=== PATIENT | female | born 1995 | race African-American/Black ===

== ENCOUNTER 2022-04-12 18:09 | Inpatient (IN) | payer MEDICAID ==
[~2022-04-12] VITALS: Ht 175.3 cm; Wt 104.6 kg
[2022-04-13] MEDS ORDERED: mag hydrox/Alum hydrox/simeth 30ml oral suspension PO PRN (15:20)
[2022-04-13] MEDS ORDERED: loperamide 2mg capsule PO PRN (15:20)
[2022-04-13] MEDS ORDERED: magnesium hydroxide 30ml (MOM) UD suspension PO PRN (15:20)
[2022-04-13] MEDS ORDERED: acetaminophen 325mg tablet PO PRN ×2 (15:20)
--- NOTE | 2022-04-13 16:51 | NUR ---
Admit note: [facility] for DTS from [facility] at 1615. Pt stated she has been experiencing SI with a plan to slit her wrists. Pt reported of four attempts to overdose in the last month. Pt has a history of depression. Pt states having her children removed by CPS was the trigger.
[2022-04-13 17:02] VITALS: BP 120/72
[2022-04-13 19:57] VITALS: BP 113/74
--- NOTE | 2022-04-13 23:40 | NUR ---
Nursing Progress Note Problem : [facility] on 5150 for DTS from [facility] at 1615. Pt stated she has been experiencing SI with a plan to slit her wrists. Pt reported of four attempts to overdose in the last month. Pt has a history of depression. Pt states having her children removed by CPS was the trigger. Interventions : Maintained a safe and supportive environment, ensured contract for safety, and maintained Q 15min safety checks. Response : Pt was in her room resting at change of shift. She states she is feeling better and hopeful to be out here by Thursday04/16/22 because she is hopeful she will get her children back. Pt currently denies s/i and states she hasnt taken medication in months and is hoping to get stable on her medication and do what she needs to do to get her children returned. Pt is calm and cooperative. Isolates to herself. Had evening snack and spent time reading before bed. Pt declines nicotine patch or lozenges although she reports smoking 1/2 ppd. Plan : Pt. continues to require medication adjustments and a safe and supportive environment. Q 15 minute checks for safety.
[2022-04-14 07:50] LABS: CHOL/HDL RATIO 6.4 (0.00-4.99); CHOLESTEROL 199 MG/DL (0-200); HDL CHOLESTEROL 31 MG/DL (35-60); LDL CHOLESTEROL 132 MG/DL (50-100); TRIGLYCERIDES 167 MG/DL (20-135)
[2022-04-14 08:00] VITALS: BP 113/74
[2022-04-14 10:59] LABS: HEMOGLOBIN A1C 5.7 % (4.5-6.2)
[2022-04-14] MEDS ORDERED: SERT200C PO (11:01)
[2022-04-14] MEDS ORDERED: hydrOXYzine 25 MG tablet PO PRN (15:10)
[2022-04-14] MEDS ORDERED: traZODone 150mg tablet PO PRN (16:10)
--- NOTE | 2022-04-14 18:22 | NUR ---
Nursing Progress Note: Maribel Problem: Pt admitted to [facility] on 5150 for DTS from [facility]. Pt stated she has been experiencing SI with a plan to slit her wrists. Pt reported of four attempts to overdose in the last month. Pt has a history of depression. Pt states having her children removed by CPS was the trigger. Intervention: Provided with a safe and therapeutic environment, clear communication, active listening and positive encouragement. Response: Patient is cooperative with 1:1 assessment. She is tearful when talking about her current situation. She states that her children were taken from her and there are now ongoing custody issues that she is concerned about. She verbalizes that she is feeling depressed and scared about what will happen with her children in court on Thursday. Appears depressed and isolates to her room. Plan: Patient continues to require crisis interruption and stabilization with medication management and monitoring in a safe and therapeutic environment.
[2022-04-14] MEDS ORDERED: traZODone 50mg tablet PO PRN (19:15)
[2022-04-14 19:25] VITALS: BP 133/85
--- NOTE | 2022-04-14 22:13 | NUR ---
Nursing Progress Note: Maribel Problem: Pt admitted to [facility] on 5150 for DTS from [facility]. Pt stated she has been experiencing SI with a plan to slit her wrists. Pt reported of four attempts to overdose in the last month. Pt has a history of depression. Pt states having her children removed by CPS was the trigger. Intervention: Provided with a safe and therapeutic environment, clear communication, active listening and positive encouragement. Response: Pt was in her room at change of shift reading. Patient is cooperative with 1:1 assessment. She is tearful, stating she hopes she will be able to be released to go to court Thursday for court for her children. She states that her children were taken from her and there are now ongoing custody issues that she is concerned about. Pt denies s/i, denies anxiety, states she slept well last night, then later asks for meds for anxiety and sleep, stating she is worried about court and thinks if she sleeps well she will be feeling better tomorrow. Pt is quiet, guarded, appears depressed and isolates to her room. Plan: Patient continues to require crisis interruption and stabilization with medication management and monitoring in a safe and therapeutic environment.
[2022-04-15] MEDS: sertraline 50mg tablet PO SCH (07:59)
[2022-04-15 08:00] VITALS: BP 109/55
--- NOTE | 2022-04-15 15:12 | NUR ---
Met with Maribel with [facility] to discuss discharge plan and court. She requested she get discharged today so she can attend court tomorrow. Top Steep Tender could not find information on line that she has court tomorrow. Maribel reported it is confidential because it is a juvenile case. Maribel attempted to reach her CPS director social service, Petros Chen (ph# [phone]) to confirm court. Maribel left him a message requesting a call back. Top Steep Tender also left him a message requesting a call back. Petros returned repairer typewriter's call and confirmed that Maribel does have court tomorrow. Informed him that she is in the hospital currently and may not be able to attend. He reported she can attend via phone and they will call her at 8:30 tomorrow. Gave him the nurses station # to call for court. He reported he will give Maribel a call today as well to discuss attending via phone. EVERARDO Galvan
--- NOTE | 2022-04-15 16:09 | NUR ---
Nursing Progress Note: Maribel Problem: Pt admitted to [facility] on 5150 for DTS from [facility]. Pt stated she has been experiencing SI with a plan to slit her wrists. Pt reported of four attempts to overdose in the last month. Pt has a history of depression. Pt states having her children removed by CPS was the trigger. Intervention: Provided with a safe and therapeutic environment, clear communication, active listening and positive encouragement. Response: Cooperative with 1:1 assessment and medications. Verbalizes concern over getting to her court date tomorrow morning for custody of her 6 children. information services consultant states that her hearing will be over the phone. Isolates to her room and only comes out for meals or to meet her needs. Denies any SI at this time but continues to appear depressed. Plan: Patient continues to require crisis interruption and stabilization with medication management and monitoring in a safe and therapeutic environment.
[2022-04-15 19:26] VITALS: BP 99/54
[2022-04-15] MEDS ORDERED: traZODone 50mg tablet PO PRN (20:00)
--- NOTE | 2022-04-15 20:44 | NUR ---
Nursing Progress Note: Maribel Problem: Pt admitted to [facility] on 5150 for DTS from [facility]. Pt stated she has been experiencing SI with a plan to slit her wrists. Pt reported of four attempts to overdose in the last month. Pt has a history of depression. Pt states having her children removed by CPS was the trigger. Intervention: Provided with a safe and therapeutic environment, clear communication, active listening and positive encouragement. Response: Pt was resting in bed a change of shift, then fell asleep shortly after having vitals done. Pt was asleep and snoring softly rr 16 at HS med pass. Pt did not receive any medications this evening as she is asleep. Plan: Patient continues to require crisis interruption and stabilization with medication management and monitoring in a safe and therapeutic environment.
[2022-04-16 08:00] VITALS: BP 107/66
[2022-04-16] MEDS: sertraline 50mg tablet PO SCH (08:06)
--- NOTE | 2022-04-16 17:08 | NUR ---
Nursing Progress Note: Maribel Problem: Pt admitted to [facility] on 5150 for DTS from [facility]. Pt stated she has been experiencing SI with a plan to slit her wrists. Pt reported of four attempts to overdose in the last month. Pt has a history of depression. Pt states having her children removed by CPS was the trigger. Intervention: Provided with a safe and therapeutic environment, clear communication, active listening and positive encouragement. Response: Patient continues to endorse feelings of depression due to her children being taken from her. She verbalizes concern over her hearing today for custody of her kids. cargo and ramp services manager is aware and has been in communication with the CPS worker. Patient is now waiting on a call from her transportation department supervisor to discuss what happened at her hearing. Patient continues to isolate herself in her room. She comes out for meals and to meet her needs. Denies having any SI. States, I havent since Rebecca been here. Patient appears very depressed. Plan: Patient continues to require crisis interruption and stabilization with medication management and monitoring in a safe and therapeutic environment.
[2022-04-16 20:00] VITALS: BP 107/70
--- NOTE | 2022-04-17 05:36 | NUR ---
Nursing Progress Note: Maribel Problem: Pt admitted to [facility] on 5150 for DTS from [facility]. Pt stated she has been experiencing SI with a plan to slit her wrists. Pt reported of four attempts to overdose in the last month. Pt has a history of depression. Pt states having her children removed by CPS was the trigger. Intervention: Provided with a safe and therapeutic environment, clear communication, active listening and positive encouragement. Response: Patient continued to show signs of depression due to her children being taken away from her. Patient is still waiting on a call from her center human resources manager to discuss her hearing. She continues to isolate herself in her room reading her book lying in bed. She came out for snacks but sat alone and did not socialized with others. Patient still appears very depressed. Plan: Patient continues to require crisis interruption and stabilization with medication management and monitoring in a safe and therapeutic environment.
[2022-04-17 07:30] VITALS: BP 97/68
--- NOTE | 2022-04-17 07:51 | NUR ---
Initial: Pt admitted w/ major depressive disorder per EMR. Currently on Regular diet w/ mostly 100% intake of meals and participates in snacks per documentation, meeting needs at this time. [facility] 04/15 w/ PRN bowel care available. No nutrition intervention implemented at this time. Will continue to monitor. Recs; 1. Continue Regular diet as tolerated 2. Bowel care PRN 3. Weekly wts Addendum: 04/17/22 at [address] Amended: Links added.
[2022-04-17] MEDS: sertraline 50mg tablet PO SCH (09:04)
--- NOTE | 2022-04-17 13:46 | NUR ---
DISCHARGE PLAN Maribel reported she is safe to return home. She is going to stay with a friend for a couple days. [facility] will pick her up at noon on Thursday (04/18/22) and transport her directly to her appointment at [facility] to meet with a clinician. From there she will get scheduled to see a psychiatrist. EVERARDO Galvan
--- NOTE | 2022-04-17 16:25 | NUR ---
Problem : Pt admitted to [facility] on 5150 for DTS from [facility]. Pt stated she has been experiencing SI with a plan to slit her wrists. Pt reported of four attempts to overdose in the last month. Pt has a history of depression. Pt states having her children removed by CPS was the trigger. Pt. currently denies all MH s/s and reports a desire to discharge. Interventions : Introduced self and established rapport, maintained a safe and supportive environment, ensured contract for safety, provided clear and simple instructions, and maintained Q 15min safety checks. Response : Received pt. sleeping in bed, she awoke and attended breakfast in the Group Room. Afterwards, pt. sat up riding the exercise bicycle and was observed to be interacting appropriately with others. Pt. presents as cooperative and animated, she perseverates on her desire to discharge. Pt. denies any ongoing S/I, does not appear to be internally preoccupied, and no delusional statements were made. Pt. attended group and was observed to be interacting appropriately with others during the shift. Plan : Per JULIA Celestin pt. continues to require a safe and supportive environment. She will discharge soon.
[2022-04-17 20:00] VITALS: BP 131/83
--- NOTE | 2022-04-18 04:13 | NUR ---
Nursing Progress Note: Maribel Problem: Pt admitted to [facility] on 5150 for DTS from [facility]. Pt stated she has been experiencing SI with a plan to slit her wrists. Pt reported of four attempts to overdose in the last month. Pt has a history of depression. Pt states having her children removed by CPS was the trigger. Intervention: Provided with a safe and therapeutic environment, clear communication, active listening and positive encouragement. Response: At the beginning of shift, patient was found in activity room reading a book. She is pleasant and cooperative. Patient allowed assessment, but had no PM meds to administer. She was in good spirits about "going home tomorrow". Patient resorted to bed and slept throughout night. Plan: Patient continues to require crisis interruption and stabilization with medication management and monitoring in a safe and therapeutic environment.
[2022-04-18 07:46] VITALS: BP 116/63
[2022-04-18] MEDS: sertraline 50mg tablet PO SCH (08:52)
[2022-04-18] MEDS ORDERED: HYDR-3686 PO (11:36)
[2022-04-18] MEDS ORDERED: TRAZ-251 PO (11:36)
[2022-04-18] MEDS ORDERED: SERT-434 PO (11:36)
--- NOTE | 2022-04-18 12:10 | NUR ---
Discharge Note: Pt. was discharged from the unit at 1210 accompanied by staff to the vehicle of the stacker driver who will be transporting her back to [facility]. Pt's belongings were inventoried and returned to her by NOZA. This poem writer reviewed pt's medications and discharge instructions with her and she reported understanding. No nicotine replacement was required. Pt. is able to contract for safety.
== END 2022-04-18 12:10 | disposition home or self-care (01) | DRG 751 ==
LOC: ADULT MH 04-13 16:22
PROVIDERS: ADMIT Psychiatry & Neurology Psychiatry; ATTEND Psychiatry & Neurology Psychiatry
DX: F33.2 Major depressive disorder, recurrent severe without psychotic features (principal); E66.9 Obesity, unspecified; F41.0 Panic disorder [episodic paroxysmal anxiety]; F43.12 Post-traumatic stress disorder, chronic; J10.1 Influenza due to other identified influenza virus with other respiratory manifestations; K21.9 Gastro-esophageal reflux disease without esophagitis; F17.210 Nicotine dependence, cigarettes, uncomplicated; R00.0 Tachycardia, unspecified; R11.0 Nausea; T42.4X2A Poisoning by benzodiazepines, intentional self-harm, initial encounter; T45.0X2A Poisoning by antiallergic and antiemetic drugs, intentional self-harm, initial encounter; Y92.89 Other specified places as the place of occurrence of the external cause; Z81.8 Family history of other mental and behavioral disorders; Z68.34 Body mass index [BMI] 34.0-34.9, adult; Z98.891 History of uterine scar from previous surgery; Z71.6 Tobacco abuse counseling
CPT/HCPCS: 36415; 80061; 83036; 87081; Q0177